=== PATIENT | female | born 1980 | race Caucasian/White ===

== ENCOUNTER 2016-11-16 10:56 | Emergency (ER) | payer OTHER ==
[~2016-11-16] VITALS: Ht 170.2 cm; Wt 56.0 kg
[~2016-11-16 10:56] MED LIST: Habitrol,Nicoderm CQ TD; METHADOSE5 MG PO; Motrin PO; NOHOMEMEDS; Percocet 5/325,Endoc PO; TYLENOL EXTRA500 MG PO
[2016-11-16] MEDS ORDERED: METHADOSE40 MG PO (12:06)
[2016-11-16] MEDS ORDERED: ZOFRAN4 MG PO ×2 (12:07→14:03)
[2016-11-16] MEDS ORDERED: PRENATAL TABLE1 EAC3 PO (12:07)
[2016-11-16 13:00] LABS: MCH 30.9 PG (29.0-34.0); MCV 88.2 FL (83-99); MEAN PLAT.VOLUME 12.3 uM^3 (9.5-12.4); PLATELET COUNT 131 K/uL (156-360); RBC DIS.WIDTH-CV 11.6 % (11.8-14.6); RBC DIS.WIDTH-SD 37.3 % (39-53); RED BLOOD COUNT 4.31 M/uL (3.80-5.20); WHITE BLOOD COUNT 6.8 K/uL (4.1-10.2)
[2016-11-16 13:09] LABS: CHLORIDE 108 mEq/L (99-109); SODIUM 138 mEq/L (136-147)
[2016-11-16 13:11] LABS: GLUCOSE 85 mg/dL (70-99)
[2016-11-16 13:12] LABS: ANION GAP 9 MEQ/L (2-14)
[2016-11-16 13:15] LABS: GFR ESTIMATE (CALCULATED) > 59 mL/min/
[2016-11-16 13:16] LABS: UREA NITROGEN (BUN) 7 mg/dL (9-23)
[2016-11-16 13:35] LABS: ADD MIUA? YES; BILIRUBIN NEGATIVE; BLOOD NEGATIVE; COLOR YELLOW ((YELLOW)); GLUCOSE (STRIP) NEGATIVE; KETONES 80; LEUKOCYTES NEGATIVE; NITRITE NEGATIVE; PROTEIN (STRIP) NEGATIVE; SPECIFIC GRAVITY 1.024 (1.000-1.030); UROBILINOGEN 0.2 MG/DL (0.2-1.0)
[2016-11-16 13:37] LABS: BACTERIA RARE /HPF; EPITHELIAL CELLS 1+ /HPF; MUCUS 2+ /LPF; RED BLOOD CELLS 0-5 /HPF (0-5); UCUL ADDED? NO; WHITE BLOOD CELLS 0-5 /HPF (0-5)
[2016-11-16 13:40] LABS: QUANTITATIVE HCG 132844.9 MIU/ML
[2016-11-16 14:21] VITALS: BP 102/62
== END 2016-11-16 14:23 | disposition home or self-care (01) ==
LOC: EME 10:56
PROVIDERS: Emergency Medicine
DX: O21.0 Mild hyperemesis gravidarum (principal); O99.331 Smoking (tobacco) complicating pregnancy, first trimester; F17.200 Nicotine dependence, unspecified, uncomplicated; O09.511 Supervision of elderly primigravida, first trimester; Z3A.09 9 weeks gestation of pregnancy
CPT/HCPCS: 80048; 81003; 84702; 85027; 99281; 99285; J2405; J7030

== ENCOUNTER 2017-06-25 06:55 | Inpatient (IN) | payer OTHER ==
[2017-06-25] VITALS (7 sets, daily range): BP systolic 112–128; BP diastolic 56–77
[~2017-06-25] VITALS: Ht 170.2 cm; Wt 66.2 kg
[~2017-06-25 06:55] MED LIST changes: +METHADOSE10 MG/1 ML PO; +PRENATAL TABLE1 EAC3 PO; +TUMS500 MG PO; +ZITHROMAX Z-PA250 MG PO; +ZOFRAN4 MG PO
[2017-06-25] MEDS ORDERED: DOCUSATE SODIU100 MG PO (10:07)
[2017-06-25] MEDS ORDERED: IBUPROFEN800 MG PO (10:07)
[2017-06-25] MEDS ORDERED: ENDOCET 5-3251 EACH PO (10:07)
[2017-06-25 12:05] LABS: COCAINE NEGATIVE (150 ng/mL); METHAMPHETAMINE NEGATIVE (500 ng/mL); OPIATES (MORPHINE) NEGATIVE (100 ng/mL); PHENCYCLIDINE NEGATIVE (25 ng/mL); THC CANNABINOIDS NEGATIVE (50 ng/mL)
[2017-06-25 12:06] LABS: AMPHETAMINE NEGATIVE (500 ng/mL); BARBITURATES NEGATIVE (200 ng/mL); BENZODIAZEPINES NEGATIVE (150 ng/mL); BUPRENORPHINE NEGATIVE (10 ng/mL); METHADONE PRESUMPTIVE POSITIVE (200 ng/mL); OXYCODONE NEGATIVE (100 ng/mL); PROPOXYPHENE NEGATIVE (300 ng/mL); TRICYCLIC ANTIDEPRESSANTS NEGATIVE (300 ng/mL)
[2017-06-26 03:15] VITALS: BP 116/58
[2017-06-26 07:04] LABS: BASOPHIL (%) 0.4 % (0-1); EOSINOPHIL (%) 0.8 % (0-5); EOSINOPHIL COUNT 0.1 K/uL (0-0.3); HEMATOCRIT 29.7 % (36.0-46.0); IMMATURE GRANULOCYTE (%) 0.4 % (0.0-0.7); LYMPHOCYTE (%) 22.5 % (15-42); LYMPHOCYTE COUNT 1.9 K/uL (1.0-2.8); MCH 32.1 PG (29.0-34.0); MCHC 34.3 G/DL (30.0-36.0); MCV 93.4 FL (83-99); MONOCYTE (%) 7.5 % (3-12); MONOCYTE COUNT 0.6 K/uL (0-0.8); NEUTROPHIL (%) 68.4 % (45-76); NEUTROPHIL COUNT 5.7 K/uL (1.8-6.4); RBC DIS.WIDTH-CV 12.7 % (11.8-14.6); RBC DIS.WIDTH-SD 43.8 % (39-53); WHITE BLOOD COUNT 8.4 K/uL (4.1-10.2)
[2017-06-26 07:05] LABS: HEMOGLOBIN 10.2 G/DL (11.9-15.5); PLATELET COUNT 91 K/uL (156-360); RED BLOOD COUNT 3.18 M/uL (3.80-5.20)
[2017-06-26 19:19] VITALS: BP 115/63
[2017-06-26 21:56] VITALS: BP 117/66
[2017-06-27 03:21] VITALS: BP 130/60
[2017-06-27 23:32] VITALS: BP 131/64
[2017-06-28 23:16] VITALS: BP 129/61
== END 2017-06-29 15:00 | disposition home or self-care (01) | DRG 765 ==
LOC: 2WEST 06:55 → 2SOUTH 11:10 → 2WEST 06-29 15:00
PROVIDERS: Obstetrics & Gynecology
DX: O69.81X0 Labor and delivery complicated by cord around neck, without compression, not applicable or unspecified (principal); O99.344 Other mental disorders complicating childbirth; O99.334 Smoking (tobacco) complicating childbirth; Z37.0 Single live birth; Z3A.39 39 weeks gestation of pregnancy; O34.211 Maternal care for low transverse scar from previous cesarean delivery; Z30.2 Encounter for sterilization; O98.42 Viral hepatitis complicating childbirth; B19.20 Unspecified viral hepatitis C without hepatic coma; F31.9 Bipolar disorder, unspecified; O99.323 Drug use complicating pregnancy, third trimester; F11.90 Opioid use, unspecified, uncomplicated; O99.52 Diseases of the respiratory system complicating childbirth; J40 Bronchitis, not specified as acute or chronic; F17.210 Nicotine dependence, cigarettes, uncomplicated
CPT/HCPCS: 36415; 85025; 86850; 86900; 86901; 88302; J0330; J0690; J1100; J1200; J2250; J2274; J2405; J3010; J7120

== ENCOUNTER 2017-07-08 14:28 | Observation (INO) | payer OTHER ==
[~2017-07-08 14:28] MED LIST changes: +DOCUSATE SODIU100 MG PO; +ENDOCET 5-3251 EACH PO; +IBUPROFEN800 MG PO
[2017-07-08 15:21] VITALS: BP 124/58
[2017-07-08 16:44] LABS: HEMATOCRIT 40.1 % (36.0-46.0); MCH 30.9 PG (29.0-34.0); MCHC 34.2 G/DL (30.0-36.0); MCV 90.5 FL (83-99); RBC DIS.WIDTH-CV 11.6 % (11.8-14.6); RBC DIS.WIDTH-SD 38.7 % (39-53); WHITE BLOOD COUNT 7.6 K/uL (4.1-10.2)
[2017-07-08 16:46] LABS: HEMOGLOBIN 13.7 G/DL (11.9-15.5); PLATELET COUNT 213 K/uL (156-360); RED BLOOD COUNT 4.43 M/uL (3.80-5.20)
[2017-07-08 19:19] VITALS: BP 111/63
[2017-07-08] MEDS ORDERED: AUGMENTIN500 MG PO (19:32)
== END 2017-07-08 20:23 | disposition home or self-care (01) ==
LOC: 2EAST 14:28 → ENRESERV 14:29 → 2EAST 14:32 → ENRESERV 14:33 → 2EASTP 15:04
PROVIDERS: Obstetrics & Gynecology
DX: O34.219 Maternal care for unspecified type scar from previous cesarean delivery (principal); Z98.51 Tubal ligation status; O72.2 Delayed and secondary postpartum hemorrhage; O90.89 Other complications of the puerperium, not elsewhere classified; R10.9 Unspecified abdominal pain; L42 Pityriasis rosea; Z87.440 Personal history of urinary (tract) infections; O99.325 Drug use complicating the puerperium; F11.20 Opioid dependence, uncomplicated; O99.335 Smoking (tobacco) complicating the puerperium; F17.200 Nicotine dependence, unspecified, uncomplicated; O99.345 Other mental disorders complicating the puerperium; F31.9 Bipolar disorder, unspecified; F41.9 Anxiety disorder, unspecified
CPT/HCPCS: 74174; 85027; 87040; 87086; G0378; J0295; J7050